=== PATIENT | male | born 1940 | race Caucasian/White ===

== ENCOUNTER 2019-08-04 08:02 | Outpatient (CLI) | payer MEDICARE ==
[2019-08-04] MEDS ORDERED: REGADENOSON 0.4 MG/5 ML SYRINGE ONE (15:49)
== END 2019-08-04 23:59 | disposition home or self-care (01) ==
LOC: CFH 08:02
PROVIDERS: ATTEND Internal Medicine Cardiovascular Disease
DX: R07.89 Other chest pain (principal)
CPT/HCPCS: 78452; 93017; A9502; J2785

== ENCOUNTER → 2019-10-07 | Outpatient (CLI) | payer MEDICARE | END | disposition home or self-care (01) | LOC: RAD 12:19 | PROVIDERS: ATTEND Internal Medicine | DX: R06.02 Shortness of breath (principal) | CPT/HCPCS: 71045; 78582; A9540; A9558 ==

== ENCOUNTER → 2020-01-13 | Outpatient (CLI) | payer MEDICARE | END | disposition home or self-care (01) | LOC: CFH 08:48 | PROVIDERS: ATTEND Internal Medicine Cardiovascular Disease | DX: I06.2 Rheumatic aortic stenosis with insufficiency (principal); I25.10 Atherosclerotic heart disease of native coronary artery without angina pectoris; I71.2 Thoracic aortic aneurysm, without rupture | CPT/HCPCS: 93306 ==

== ENCOUNTER 2020-04-12 12:51 | Outpatient (CLI) | payer MEDICARE | END 2020-04-12 23:59 | disposition home or self-care (01) | LOC: CFH 12:51 | PROVIDERS: ATTEND Internal Medicine | DX: I08.2 Rheumatic disorders of both aortic and tricuspid valves (principal); I10 Essential (primary) hypertension; E78.5 Hyperlipidemia, unspecified | CPT/HCPCS: 93306 ==

== ENCOUNTER 2020-07-27 02:19 | Emergency (ER) | payer MEDICARE ==
[~2020-07-27] VITALS: Ht 190.5 cm; Wt 98.0 kg
[2020-07-27] MEDS ORDERED: BUPIVACAINE 0.25% ONE (02:40)
[2020-07-27] MEDS ORDERED: BUPIVACAINE 0.25% INFIL ONE (03:00)
[2020-07-27] MEDS ORDERED: NEOSPORIN OINT. PKT 1 PACKET ONE (03:08)
[2020-07-27] MEDS ORDERED: DIPH,PERTUSS(ACELL),TET VAC/PF 0.5 ML IM-VACC ONE ×2 (03:08→03:30)
[2020-07-27 03:25] VITALS: BP 106/62
== END 2020-07-27 03:27 | disposition home or self-care (01) ==
LOC: ED 02:31
DX: S91.201A Unspecified open wound of right great toe with damage to nail, initial encounter (principal); X58.XXXA Exposure to other specified factors, initial encounter; Y93.89 Activity, other specified; Y92.009 Unspecified place in unspecified non-institutional (private) residence as the place of occurrence of the external cause; Y99.8 Other external cause status
CPT/HCPCS: 11730; 90471; 90715; 99284; 99406